=== PATIENT | male | born 1965 | race Caucasian/White ===

== ENCOUNTER 2024-09-05 19:57 | Emergency (ER) | payer OTHER, SELFPAY ==
[2024-09-05 20:00] VITALS: BP 170/96
[2024-09-05 20:36] LABS: % Basophils 0.2 % (0-2); % Eosinophils 0.3 % (0-6); % Immature Granulocytes 0.7 % (0-0.5); % Lymphocytes 19.8 % (20.5-51.1); % Monocytes 6.1 % (1.7-9.3); % Neutrophils 72.9 % (42.2-75.2); Absolute Eosinophils 0.1 10^3/uL (0-0.7); Absolute Immature Granulocytes 0.1 10^3/uL (0-0.05); Absolute Lymphocytes 3.6 10^3/uL (1.2-3.4); Absolute Monocytes 1.1 10^3/uL (0.1-0.6); Absolute Neutrophils 13.3 10^3/uL (1.4-6.5); Hematocrit 41.3 % (39.0-52.0); Hemoglobin 14.7 g/dL (13.0-18.0); Mean Corp Hgb Conc. 35.6 g/dL (33.0-37.0); Mean Corpuscular Hgb 31.3 pg (27.0-31.0); Mean Corpuscular Volume 87.9 fL (80.0-94.0); Mean Platelet Volume 9.5 fL (7.4-10.4); Nucleated Red Blood Cells % 0 % (-); Platelet Count 316 10^3/uL (130-400); Red Cell Dist. Width 13.6 % (11.5-14.5); White Blood Cell Count 18.2 10^3/uL (4.8-10.8)
[2024-09-05 21:02] LABS: Amphetamines Positive (Negative); Barbiturates Negative (Negative); Benzodiazepines Negative (Negative); Buprenorphine Negative (Negative); Cocaine Negative (Negative); Methadone Negative (Negative); Methamphetamines Negative (Negative); Opiates Negative (Negative)
[2024-09-05 21:03] LABS: Marijuana Positive (Negative); Phencyclidine Negative (Negative); Tricyclic Antidepressants Negative (Negative)
[2024-09-05 21:04] LABS: Blood Urea Nitrogen 18 mg/dl (9-20); Glucose 104 mg/dl (70-99)
[2024-09-05 21:05] LABS: Calcium 9.7 mg/dl (8.4-10.2); Carbon Dioxide 22 mmol/L (22-30); Chloride 104 mmol/L (98-107); Potassium 4.2 mmol/L (3.5-5.1); Sodium 140 mmol/L (135-145); eGFR > 60.00
[2024-09-05 21:08] LABS: Alcohol None Detected
--- NOTE | 2024-09-05 21:15 | ED.GENMED ---
History of Present Illness
General
Chief Complaint: Crisis Evaluation
Source: patient
Exam Limitations: none
Time Seen by Provider: 09/05/24 21:04
History of Present Illness
History of Present Illness:
See MDM
Past History
Past History
ED Past Medical History: HTN, Psychiatric (Depression), Other (Migraines) and Other (IG a deficiency, IBS)
ED Past Surgical History: Appendectomy, Orthopedic (Lower back surgery) and Other (Hernia)
Social History
Tobacco: Former smoker
Alcohol: None
Drug: None
Personal:
Living: with family
Employment: Disabled
Family History
Family History: Diabetes; Negative Early CAD or CAD
Phy Exam
Physical Exam
Physical Exam:
See MDM
Course
Orders/Labs/Results
Orders:
Orders
09/05/24 20:08
1:1 Observation - Suicide/ Violent Behavior As Directed
09/05/24 20:19
Crisis Consult Urgent
Reason for Consult: SI
09/05/24 20:28
Alcohol Urgent
Basic Metabolic Panel Urgent
Complete Blood Count/With Diff Urgent
Fentanyl, Urine Urgent
Urine Drug Abuse Screen Urgent
Date Specimen was Collected: 09/05/24
Time Specimen was Collected: 20:19
Abnormal Lab Results
09/05/24
20:28
WBC 18.2 H 10^3/uL
(4.8-10.8)
MCH 31.3 H pg
(27.0-31.0)
Abs Immat Gran (auto) 0.1 H 10^3/uL
(0-0.05)
Absolute Neuts (auto) 13.3 H 10^3/uL
(1.4-6.5)
Absolute Lymphs (auto) 3.6 H 10^3/uL
(1.2-3.4)
Absolute Monos (auto) 1.1 H 10^3/uL
(0.1-0.6)
Immature Gran % 0.7 H %
(0-0.5)
Lymphocytes % 19.8 L %
(20.5-51.1)
Glucose 104 H mg/dl
(70-99)
Ur Amphetamines Screen Positive H
(Negative)
U Marijuana (THC) Screen Positive H
(Negative)
09/05/24 20:28
09/05/24 20:28
Vital Signs
Initial and Last Documented VS:
Initial Vital Signs
Temp Pulse Resp BP Pulse Ox
98.2 F 104 22 170/96 96
09/05/24 20:00 09/05/24 20:00 09/05/24 20:00 09/05/24 20:00 09/05/24 20:00
Last Documented Vital Signs
Temp Pulse Resp BP Pulse Ox
98.2 F 104 22 170/96 96
09/05/24 20:00 09/05/24 20:00 09/05/24 20:00 09/05/24 20:00 09/05/24 20:00
MDM/Problems Addressed
Differential Diagnosis Includes:
HPI and MDM Narrative:
59-year-old male presenting by mobile crisis for crisis evaluate. Mobile crisis filed a backup 302. Patient had mentioned suicidal thoughts with a plan but he is not willing to share what he had said. He does admit to increased depression and
hopelessness. Patient does want to go inpatient regardless
Crisis did evaluate. Will order medical screening blood work but patient otherwise clear. He is calm and cooperative
Physical exam
General: Well appearing and non-toxic
HEENT: protecting airway
Neck: appears supple
CV: No evidence of cyanosis
Resp: No accessory muscle use
Abd: Non-distended
Extremities: No deformities
Neuro: alert
Psych: depressed affect
Skin: Intact
Problems Addressed including Acute and Chronic Conditions affecting care:
1. [Depression
Acuity: acute
Prognosis: stable
Details: Backup 302 was filed. Patient willing to go inpatient
Updates
9:30 PM crisis indicating that they found a bed placement
Differential Diagnosis (but not limited to): Depression, suicidal thoughts
Drug therapy (if applicable): OTC meds, please see d/c instruction regarding Rx drugs
Amount and/or Complexity of Data Reviewed
Clinical info obtained from: Patient
External data reviewed: N/A
Labs I independently reviewed (but not limited to): Mild leukocytosis. Given no fever, this is likely reactive
Radiology: N/A
Pulse Ox: not hypoxic
EKG independently reviewed: N/A
[employer]: N/A
Critical Care: N/A
Risk of Complication:
Social Determinants of health: Good social support
Discussed with other providers: Crisis
Escalation of Care includes Admit/Obs: Given depression with suicidal thoughts, crisis found facility for inpatient
Patient otherwise medically cleared and stable
Occasional wrong word or 'sound a like' substitutions may have occurred due to the inherent limitations of voice recognition software. Read the chart carefully and recognize, using context, where substitutions have occurred.
*Critical Care Note
Total Time (30-74mins, 75-104mins- exclusive of procedures): Not Applicable
ED Attending Note
-
Portions of this chart may have been created with voice recognition software.� Occasional wrong word or��sound alike� substitutions may have occurred due to the inherent limitations of voice recognition software.
Discharge Plan
Departure
Patient Disposition: Psych Facility
Date of Disposition: 09/05/24
Time of Disposition: 21:15
Discharge Problem:
Depressed
Prescriptions:
No Action
Cyclobenzaprine Hcl
10 mg PO TID PRN (Reason: muscle spasms)
Ambien:
10 mg PO QPM
gabapentin 400 MG capsule
1,600 mg PO BID
Patient Comments:
1600 mg in PM and 800 mg in AM
Imitrex
50 mg PO PRN PRN (Reason: migraine)
Percocet 7.5-500 mg Tablet
1 tab PO PRN PRN (Reason: pain)
verapamil 240 MG tablet extended release
240 mg PO DAILY
vilazodone [Viibryd] 40 MG tablet
40 mg PO DAILY
guaifenesin [Mucus Relief ER] 600 MG tablet extended release 12hr
1,200 mg PO Q12
prednisone 50 MG tablet
40 mg PO DAILY
albuterol sulfate [Albuterol Sulfate HFA] 18 GM HFA aerosol inhaler
8.5 gm inhalation Q4H
mometasone-formoterol [Dulera] 1 PUFF HFA aerosol inhaler
2 puff inhalation BID
ibuprofen 800 MG tablet
800 mg PO Q8 Qty: 30 0RF
cephalexin [Keflex] 500 MG capsule
500 mg PO BID Qty: 10 1RF
sulfamethoxazole-trimethoprim 1 TABLET tablet
1 tab PO BID Qty: 10 1RF
Interventions
Interventions:
*Risk Screen - Suicide Last Done: 09/05/24 20:00
*General Assessment Last Done: 09/05/24 20:39
*Neglect/Abuse Screening Last Done: 09/05/24 20:00
ED- Fall Risk Assessment Last Done: 09/05/24 20:35
*ED COVID-19 Vaccine History Last Done: 09/05/24 20:39
ED-Psychological Assessment Last Done: 09/05/24 20:34
Discharge Date and Time
Print Language: BELARUSIAN
[2024-09-05 21:18] LABS: Fentanyl, Urine Negative (Negative)
[2024-09-05] MEDS: NICODERM TRANSDERMAL 14 MG TRANSDERM (22:16)
[2024-09-05 22:17] VITALS: BP 150/76
== END 2024-09-05 23:49 ==
LOC: EMR 19:57
PROVIDERS: EMERGENCY PHYSICIAN Student in an Organized Health Care Education/Training Program; FAMILY PHYSICIAN Family Medicine
DX: F32.A Depression, unspecified (principal); I10 Essential (primary) hypertension; K58.9 Irritable bowel syndrome, unspecified; Z83.3 Family history of diabetes mellitus; Z87.891 Personal history of nicotine dependence; Z90.49 Acquired absence of other specified parts of digestive tract
CPT/HCPCS: 99283; 80048; 80306; 80307; 82077; 85025